=== PATIENT | female | born 1965 | race Caucasian/White ===

== ENCOUNTER → 2024-04-19 11:04 | Outpatient (BNVA) | payer OTHER, SELFPAY | PROVIDERS: PCP Physician Assistant; Visit Provider Nurse Practitioner Family ==

== ENCOUNTER → 2024-04-19 11:04 | Outpatient (AMB) ==
--- NOTE | 2024-04-19 11:49 | MHC.OFFWIV ---
Intake Vital Signs 04/19/24 11:54 Height 5 ft 5 in Weight 193 lb 8 oz BMI 32.2 BP 102/66 Blood Pressure Location Rt brachial Position Sitting Respiration 13 Pulse 89 Pulse Source Pulse Oximeter Temp 98.2 F Temp Source Oral Pulse Oximetry (%) 96 Oxygen Delivery Method Room Air Intake Visit Reasons: COUGH/CHILLS Intake Note: Patient complaining of coughing, sob x 2 months. Patients informed that she has been sleeping in the basement with mold and sfter that she has been coughing, Patient also had a colapsed lung 3 years ago. Patient Tobacco Use Status: Never used Tobacco Risk Management Consultant Required: No Allergies No Known Allergies Allergy (Verified 04/19/24 12:07) Medication List - Last Reconciled 04/19/24 by DEB Smith- citalopram mg PO DAILY lamotrigine mg PO ONCE lorazepam mg PO DAILY PRN sumatriptan succinate mg PO zolpidem mg PO ONCE Do you need a note to return to daycare/school/sports/work: No HPI HPI Comments History of Present Illness Details The patient is a 59-year-old female presenting with respiratory difficulties and a history of environmental exposure. The patient reports that her symptoms began after an episode of prolonged exposure to molds in a basement. She describes a gradual onset of a worsening cough after exposure, which has not improved despite no longer being in the environment. The patient has a significant history of lung injury, with one incident involving exposure to old insulation materials, possibly containing asbestos, resulting in a throat closure episode, described as traumatic. Additionally, the patient suffered a collapsed lung following a fall down the stairs approximately a year after the initial asbestos exposure. Subsequent exposure to household dust, such as from vacuuming, has continued to exacerbate her symptoms, suggesting increased sensitivity. The patient reports significant difficulty in breathing with movement and persistent coughing. There has been no diagnosis of COVID or flu at recent health encounters, and past investigations reportedly did not identify any significant abnormalities beyond the historical lung injury. Regarding medication history, the patient has used old albuterol inhalers, which did not alleviate her symptoms. She has not had a pulmonary function test previously. Other recent health issues include a poorly healed foot fracture from October, for which the patient concedes self-medication with ibuprofen and occasional beer consumption for pain relief, leading to gastrointestinal distress. 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 We considered the possibility of chronic issues related to fibroblasts in the lungs and acknowledged the prior traumatic lung injury. I recommended referral to pulmonology for comprehensive evaluation and diagnostic testing, including pulmonary function tests, to further investigate the underlying cause of her symptoms. I suggested the potential prescription of albuterol to manage her respiratory symptoms and proposed starting an allergy medication to reduce her systemic reactivity. We talked about the importance of follow-up appointments, both with pulmonology and her primary care provider, to ensure a coordinated care approach. Lastly, I encouraged her to verify her contact details and follow medication instructions as prescribed. Patient Instructions - Check in with the front desk administrator to update your contact information. - Make sure your appointments with pulmonology and primary care are scheduled promptly. 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 - Take prescribed albuterol as needed for respiratory symptoms. - Take allergy medication as advised. - Avoid potential exposure to dust and allergens. - Monitor symptoms and seek immediate care if breathing difficulties worsen. Plan Given the patient's persistent respiratory issues, I plan to facilitate a referral to pulmonology for in-depth assessment, including pulmonary function tests, to evaluate for potential chronic bronchitis or interstitial lung disease secondary to environmental exposure. The prescription of albuterol aims to provide symptomatic relief, while an allergy medication may reduce inflammatory responses. The patient's prior history of lung injury and sensitivity to airborne irritants necessitates careful monitoring and potential lifestyle modifications to minimize exposure. Addressing the poorly healed foot fracture will require orthopedic consultation to ensure proper management. The patient is encouraged to follow up with her primary care provider to address the multifaceted aspects of her health, including mood support if necessary. Patient was informed and verbally consented to the use of an ambient scribe for clinic note documentation during this visit. [facility] Social History Patient Tobacco Use Status: Never used Tobacco Physical Exam Vital Signs: Last Vital Signs Temp 98.2 F 04/19/24 11:54 Pulse 89 04/19/24 11:54 Resp 13 04/19/24 11:54 BP 102/66 04/19/24 11:54 Pulse Ox 96 04/19/24 11:54 Oxygen Delivery Method Room Air 04/19/24 11:54 BMI result Body Mass Index 32.2 Assessment & Plan Assessment & Plan (1) Cough: Code(s): R05.9 - Cough, unspecified Qualifiers: Cough type: subacute Qualified Code(s): R05.2 - Subacute cough (2) SOB (shortness of breath): Code(s): R06.02 - Shortness of breath (3) Exposure to mold: Code(s): Z77.120 - Contact with and (suspected) exposure to mold (toxic) Plan . Orders: Orders PFT pulmonary function test Today R05.9 - Cough, unspecified, R06.02 - Shortness of breath, Z77.120 - Contact with and (suspected) exposure to mold (toxic) Referrals Pulmonology Referral R05.9 - Cough, unspecified, R06.02 - Shortness of breath, Z77.120 - Contact with and (suspected) exposure to mold (toxic) Medications: New albuterol sulfate 90 mcg/actuation 2 puffs inhalation Q4-6H PRN 6.7 grams 0RF shortness of breath or wheezing 30 days cetirizine (Zyrtec) 10 mg PO DAILY 90 tabs 2RF Coding Level of Care Code Est Pt Level 3 (25876) Diagnoses Subacute cough R05.2 Cough type: subacute SOB (shortness of breath) R06.02 Exposure to mold Z77.120
== END | disposition home or self-care (01) ==